=== PATIENT | male | born 1985 | race African-American/Black ===

== ENCOUNTER 2023-07-27 04:31 | Emergency (ER) | payer OTHER, SELFPAY ==
[2023-07-27 04:39] VITALS: BP 138/76; PULSE 122; RESP 26; TEMP 38.9; O2SAT 96; BMI 40.2
--- NOTE | 2023-07-27 04:47 | ED_ITS ---
HPI - URI/Sore Throat General Chief Complaint: Cough Stated Complaint: cough, feeling cold Time Seen by Provider: 07/27/23 04:33 History of Present Illness HPI Narrative: Patient is a 38-year-old gentleman who presents with 24 hour history of general malaise body aches fatigue and cough. He states the symptoms got worse over night as he works at night. He has had no chest pain no orthopnea no PND no nausea no vomiting. He states that he is feeling short of breath although his oxygen saturations 96% on room air. He has no chronic medical issues and takes no medication. No other significant complaints and otherwise has been feeling well. Related Data Home Medications Medication Instructions Recorded Confirmed No Known Home Medications 07/27/23 07/27/23 Allergies Allergy/AdvReac Type Severity Reaction Status Date / Time No Known Drug Allergies Allergy Verified 07/27/23 04:40 Review of Systems Status of ROS: Reports: 10 or more systems reviewed and unremarkable except as noted in History and below Exam Narrative: Exam Narrative: EXAM GENERAL: Patient appears febrile and tachycardic. EYES: No scleral icterus. ENT: Tympanic membranes and oropharynx normal. THYROID: no thyroid nodules or thyromegaly. LYMPH: No supraclavicular or cervical lymphadenopathy. SKIN: Visible skin seen during exam normal or with benign process only. EXT: No dependent lower extremity pedal edema. HEART: Regular rate and rhythm with no murmurs, rubs, or gallops. LUNGS: Clear to auscultation bilaterally with no crackles or wheezes. ABD: Soft, non tender, non distended. PSYCH: Good eye contact, speech is not pressured. Const: Vital Signs, click to edit/add: Vital Signs - 24 hr 07/27/23 04:39 Temperature 102.0 F H Pulse Rate [Pulse Oximeter] 122 H Respiratory Rate 26 H Blood Pressure [Ri ght Upper Arm] 138/76 Pulse Oximetry 96 Oxygen Delivery Me thod Room Air Course Course ED Course: Patient seen and examined. Vital Signs Vital signs: Initial Vital Signs Temperature 102.0 F H 07/27/23 04:39 Temperature Source Temporal Artery Scan 07/27/23 04:39 Pulse Rate 122 H 07/27/23 04:39 Respiratory Rate 26 H 07/27/23 04:39 Blood Pressure 138/76 07/27/23 04:39 Blood Pressure Mean 96 07/27/23 04:39 Blood Pressure Position Sitting 07/27/23 04:39 Pulse Oximetry 96 07/27/23 04:39 Oxygen Delivery Method Room Air 07/27/23 04:39 Vital Signs Temperature 102.0 F H 07/27/23 04:39 Pulse Rate 122 H 07/27/23 04:39 Respiratory Rate 26 H 07/27/23 04:39 Blood Pressure 138/76 07/27/23 04:39 Pulse Oximetry 96 07/27/23 04:39 Oxygen Delivery Method Room Air 07/27/23 04:39 Temperature 102.0 F H 07/27/23 04:39 Pulse Rate 122 H 07/27/23 04:39 Respiratory Rate 26 H 07/27/23 04:39 Blood Pressure 138/76 07/27/23 04:39 Pulse Oximetry 96 07/27/23 04:39 Oxygen Delivery Method Room Air 07/27/23 04:39 MDM - URI/Sore Throat MDM Narrative Medical decision making narrative: Patient is a 38-year-old gentleman who presents with fever and cough. He has a normal lung exam. He is given Tylenol for his fever. Trouble swab is collected. No other significant findings on exam. He is given instructions to drink plenty of fluids get plenty of rest Tylenol and Motrin and we will call him with his swab results. Differential diagnosis includes but not limited to COVID-19 influenza RSV pneumonia viral syndrome. Discharge Plan Discharge Clinical Impression: Acute viral syndrome Patient Disposition: Home, Self-Care Condition: Stable Instructions: Viral Syndrome (ED) Additional Instructions: Tylenol 1000 mg 4 times a day as needed Motrin 600 mg 4 times a day as needed Plenty of rest Plenty of fluids We will call you with your viral swab results. Activity Level: No Restrictions Discharge Diet: Regular Prescriptions: No Action No Known Home Medications Stand Alone Forms: [email or web address] Info Instructions
[2023-07-27 04:49] VITALS: TEMP 38.9
[2023-07-27] MEDS: ACETAMINOPHEN 500 MG TABLET 1000 MG PO (04:49)
[2023-07-27 05:58] LABS: PCR FLU A Negative PCR FLU A (Negative); PCR FLU B Negative PCR FLU B (Negative); PCR RSV Negative PCR RSV (Negative)
[2023-07-27 06:11] LABS: SARS PCR* Negative SARS-CoV-2 (Negative)
[2023-07-27 06:19] VITALS: BP 138/76; PULSE 122; RESP 26; TEMP 38.9
== END 2023-07-27 05:00 | disposition home or self-care (01) ==
LOC: ED 05:04
PROVIDERS: Emergency Provider Internal Medicine
DX: B34.9 Viral infection, unspecified (principal)
CPT/HCPCS: 87631; 99282; 99283; A9270